=== PATIENT | female | born 1945 | race Caucasian/White ===

== ENCOUNTER 2018-01-06 10:15 | Day surgery (SDC) | payer MEDICARE ==
[~2018-01-06] VITALS: Ht 154.9 cm; Wt 66.1 kg
[~2018-01-06 10:15] MED LIST: CALC.25; FURO20; GABA300; LOSA50; METO50ER; RANI150; SODCHL1
[2018-02-25] MEDS ORDERED: RANI150 PO (12:07)
[2018-02-25] MEDS ORDERED: LIDOPRIL 2.5%-1 EACH (12:07)
[2018-02-25] MEDS ORDERED: PANT40 PO (12:08)
== END 2018-01-06 12:34 | disposition home or self-care (01) ==
LOC: ORSCSDS 10:15
PROVIDERS: Internal Medicine Gastroenterology
PROC: 0D758ZZ Dilation of Esophagus, Via Natural or Artificial Opening Endoscopic (ICD-10-PCS; principal; 2018-01-06 11:30)
PROC: 0DB68ZX Excision of Stomach, Via Natural or Artificial Opening Endoscopic, Diagnostic (ICD-10-PCS; principal; 2018-01-06 11:30)
DX: R13.14 Dysphagia, pharyngoesophageal phase (principal); R10.13 Epigastric pain; K21.9 Gastro-esophageal reflux disease without esophagitis; K25.9 Gastric ulcer, unspecified as acute or chronic, without hemorrhage or perforation; K29.80 Duodenitis without bleeding; I10 Essential (primary) hypertension; N28.9 Disorder of kidney and ureter, unspecified; E78.5 Hyperlipidemia, unspecified; Z79.899 Other long term (current) drug therapy
CPT/HCPCS: 88305; 88342; C1726; J7120

== ENCOUNTER 2018-03-01 12:24 | Day surgery (SDC) | payer MEDICARE ==
[~2018-03-01] VITALS: Ht 152.4 cm; Wt 67.4 kg
[~2018-03-01 12:24] MED LIST changes: +LIDOPRIL 2.5%-1 EACH; +PANT40 PO; +RANI150 PO
== END 2018-03-01 16:30 | disposition home or self-care (01) ==
LOC: ORSCSDS 12:24
PROVIDERS: Podiatrist Foot & Ankle Surgery
PROC: 0SGM04Z Fusion of Right Metatarsal-Phalangeal Joint with Internal Fixation Device, Open Approach (ICD-10-PCS; principal; 2018-03-01 13:30)
DX: M20.11 Hallux valgus (acquired), right foot (principal); M1A.9XX1 Chronic gout, unspecified, with tophus (tophi); I10 Essential (primary) hypertension; K21.9 Gastro-esophageal reflux disease without esophagitis; G62.9 Polyneuropathy, unspecified; Z79.899 Other long term (current) drug therapy
CPT/HCPCS: 88305; 89060; C1713; C1769; J0171; J2405; J3010; J7120

== ENCOUNTER → 2018-04-17 | Outpatient (CLI) | payer MEDICARE | LOC: LAB SHORT 16:32 → LAB EV 16:32 | DX: N39.0 Urinary tract infection, site not specified (principal) | CPT/HCPCS: 87077; 87086; 87147; 87186 ==

== ENCOUNTER 2019-05-06 09:37 | Day surgery (SDC) | payer MEDICARE ==
--- NOTE | 2019-05-06 10:12 | NUR ---
Ambulatory in Day Surgery History, Chart, Medications and Allergies reviewed before start of procedure. Lungs clear T/O to Auscultation. Patient confirms NPO status and agrees with scheduled surgery.
--- NOTE | 2019-05-06 10:54 | NUR ---
05/06/19 1054 Ryan Beckman Bite Block Placed3-LEAD EKG REVIEWED WITH PHYSICIAN PRIOR TO START OF PROCEDURE.Patient to ENDO 1History, Chart, Medications and Allergies reviewed before start of procedure.MONITOR INTACT WITH CONTINUOUS PULSE OXIMETRY AND INTERMITTENT BP.O2 VIA N/C INTACT THROUGHOUT SEDATION/PROCEDURE.See Anesthesia record
--- NOTE | 2019-05-06 11:23 | NUR ---
PT LYING ON LEFT SIDE. BP TAKEN ON R ARM. PT REPOSITIONED ON BACK. PT DENIES PAIN OR OTHER C/O AT THIS TIME.
--- NOTE | 2019-05-06 12:15 | NUR ---
Discharge instructions reviewed with patient. Patient verbalizes understanding. Copy given to patient to take home. Patient States Post-Procedure ride home has been arranged. Discharged via wheelchair to private car for ride home.
== END 2019-05-06 12:15 | disposition home or self-care (01) ==
LOC: ORSCMMR 09:37 → ORD 10:45 → ORSCMMR 11:15
PROVIDERS: Internal Medicine Gastroenterology
PROC: 0D758ZZ Dilation of Esophagus, Via Natural or Artificial Opening Endoscopic (ICD-10-PCS; principal; 2019-05-06 11:15)
PROC: 0DB68ZX Excision of Stomach, Via Natural or Artificial Opening Endoscopic, Diagnostic (ICD-10-PCS; principal; 2019-05-06 11:15)
DX: R13.10 Dysphagia, unspecified (principal); K29.70 Gastritis, unspecified, without bleeding; Q39.6 Congenital diverticulum of esophagus; K29.80 Duodenitis without bleeding; K44.9 Diaphragmatic hernia without obstruction or gangrene; I12.9 Hypertensive chronic kidney disease with stage 1 through stage 4 chronic kidney disease, or unspecified chronic kidney disease; N18.9 Chronic kidney disease, unspecified; G47.33 Obstructive sleep apnea (adult) (pediatric); Z79.899 Other long term (current) drug therapy
CPT/HCPCS: 88305; 88342; C1726; J2250; J2704; J7120